=== PATIENT | male | born 1995 | race African-American/Black ===

== ENCOUNTER 2016-07-10 13:40 | Emergency (ER) | payer SELFPAY ==
[2016-07-10 13:42] VITALS: BP 141/79; PULSE 88; RESP 16; TEMP 98.1; O2SAT 96
== END 2016-07-10 15:19 | disposition left against medical advice (07) ==
LOC: NED 13:40
DX: R41.82 Altered mental status, unspecified (principal)
CPT/HCPCS: 99281